=== PATIENT | female | born 1940 | race Caucasian/White ===

== ENCOUNTER 2019-02-11 10:58 | Emergency (ER) | payer OTHER ==
[2019-02-11 11:12] VITALS: BP 140/69; PULSE 78; TEMP 98.3; BMI 28.7
[2019-02-11] MEDS ORDERED: LIDOCAINE 5% TOPICAL PATCH TP ONE (11:28)
[2019-02-11] MEDS ORDERED: CYCLOBENZAPRINE HCL 10 MG TABLET (FP) PO ONE (11:28)
[2019-02-11] MEDS ORDERED: IBUPROFEN 600 MG TABLET (FP) PO ONE ×2 (11:30→11:31)
[2019-02-11] MEDS ORDERED: CYCLOBENZAPRINE HCL 10 MG TABLET (FP) ONE (11:31)
[2019-02-11] MEDS ORDERED: LIDOCAINE 5% TOPICAL PATCH ONE (11:31)
--- NOTE | 2019-02-11 12:22 | PDOC ---
History of Present Illness - General Chief Complaint: Back Pain Stated Complaint: BACK PAIN Time Seen by Provider: 02/11/19 11:12 History Source: Patient, Family Exam Limitations: Language Barrier Past History - Past Medical History Allergies/Adverse Reactions: Allergies Allergy/AdvReac Type Severity Reaction Status Date / Time hydrocodone [Hydrocodone] AdvReac Mild Itching Verified 02/11/19 11:10 oxycodone AdvReac Mild Itching Verified 02/11/19 11:10 Home Medications: Ambulatory Orders Diclofenac Sodium [Voltaren] 2 gm TP TID PRN #3 tube 07/08/18 Enalapril/Hydrochlorothiazide [Vaseretic 10-25 mg Tablet] 1 each PO DAILY Eszopiclone [Lunesta -] 3 mg PO HS 07/08/18 Omeprazole 20 mg PO DAILY 07/08/18 Rosuvastatin [Crestor -] 20 mg PO DAILY 07/08/18 Diclofenac Sodium 100 gm TP TID #1 gel..gram. 10/08/18 Baclofen 10 mg PO BID PRN #60 tablet 01/03/19 Ibuprofen 600 mg PO BID PRN #60 tablet 01/03/19 Pramipexole Dihydrochloride [Mirapex -] 0.25 mg PO HS #30 tablet 01/03/19 Cyclobenzaprine HCl [Flexeril 10 mg] 10 mg PO DAILY PRN #30 tablet 02/11/19 Diclofenac Sodium [Voltaren] 2 gm TP Q6H #1 tube 02/11/19 Lidocaine 5% Patch [Lidoderm -] 1 patch TP DAILY #7 patch 02/11/19 Anemia: No Asthma: Yes Cancer: No Cardiac Disorders: No CVA: No COPD: No CHF: No Dementia: No Diabetes: Yes (diet controlled) GI Disorders: Yes (gerd, gastroparesis) Disorders: No HTN: Yes Hypercholesterolemia: Yes Liver Disease: No Psychiatric Problems: Yes (depression, insomnia) Seizures: No Thyroid Disease: No - Surgical History Abdominal Surgery: Yes (HERNIA REPAIR) Appendectomy: No Cardiac Surgery: No Cholecystectomy: No Lung Surgery: No Neurologic Surgery: No Orthopedic Surgery: No - Immunization History Immunization Up to Date: No - Suicide/Smoking/Psychosocial Hx Smoking Status: No Smoking History: Never smoked Have you smoked in the past 12 months: No Number of Cigarettes Smoked Daily: 0 Information on smoking cessation initiated: No Hx Alcohol Use: No Drug/Substance Use Hx: No Substance Use Type: None Hx Substance Use Treatment: No *Physical Exam - Vital Signs Last Vital Signs Temp Pulse Resp BP Pulse Ox 98.3 F 78 16 140/69 100 02/11/19 11:10 02/11/19 11:10 02/11/19 11:10 02/11/19 11:10 02/11/19 11:10 - Physical Exam General Appearance: No: Apparent Distress Respiratory/Chest: positive: Lungs Clear, Normal Breath Sounds. negative: Respiratory Distress Cardiovascular: positive: Regular Rhythm, Regular Rate, S1, S2. negative: Murmur Gastrointestinal/Abdominal: positive: Normal Bowel Sounds, Soft. negative: Tender, Distended, Guarding, Rebound Musculoskeletal: positive: Vertebral Tenderness (along lumbar spine), Other (+ TTP along L lumbar paraspinal muscles). negative: CVA Tenderness Neurologic: positive: Fully Oriented, Alert, Normal Mood/Affect, Motor Strength 5/5, Other (normal gait) ED Treatment Course - RADIOLOGY Radiology Studies Ordered: Category Date Time Status SPINE-LUMBAR SACRAL [RAD] Stat Radiology 02/11/19 11:30 Taken - Medications Given in the ED: ED Medications Discontinued Medications Generic Name Dose Route Start Last Admin Trade Name Freq PRN Reason Stop Dose Admin Cyclobenzaprine HCl 10 mg 02/11/19 11:28 02/11/19 11:34 Flexeril - PO 02/11/19 11:29 10 mg ONCE ONE Administration Ibuprofen 600 mg 02/11/19 11:30 02/11/19 11:34 Motrin - PO 02/11/19 11:31 600 mg ONCE ONE Administration Lidocaine 1 patch 02/11/19 11:28 02/11/19 11:53 Lidoderm Patch - TP 02/11/19 11:29 1 patch ONCE ONE Administration Medical Decision Making - Medical Decision Making 78 y/o F hx of HTN, HLD, DM, asthma, GERD, herniated disc, chronic lower back pain presents with acute on chronic lower back pain, worse from yesterday. Denies trauma. was just lying down and pain got worse. Pain radiates down left leg. Follows with pain management, Dr. Bharati Sheffield, whom she last saw in December 2018; was only advised to take Motrin for pain, but that has not been helping her. Denies weakness of extremities, tingling, fever, sob, cp, abd pain, vomiting, urinary complaints, bowel incontinence, saddle/groin paresthesia. Has chronic urinary incontinence at times due to "low bladder." Patient had lumbar spine MRI Mar 2018 which showed degenerative changes and levoscoliosis Patient given motrin, flexeril, lido patch [labs from 06/2018 were reviewed with normal kidney function noted] LS xray here shows no fracture; degenerative changes again noted Stable for dc 02/11/19 12:22 *DC/Admit/Observation/Transfer Diagnosis at time of Disposition: Lumbar back pain - Discharge Dispostion Disposition: HOME Condition at time of disposition: Stable Decision to Admit order: No - Prescriptions Prescriptions: Cyclobenzaprine HCl [Flexeril 10 mg] 10 mg PO DAILY PRN #30 tablet PRN Reason: Muscle Spasms Diclofenac Sodium [Voltaren] 2 gm TP Q6H #1 tube Lidocaine 5% Patch [Lidoderm -] 1 patch TP DAILY #7 patch - Referrals Referrals: Keyona Forrester MD [Primary Care Provider] - 2 Days Bharati Sheffield NP [Nurse Practitioner] - 2 Days - Patient Instructions Printed Discharge Instructions: DI for Low Back Pain Additional Instructions: Thank you for choosing [facility]. It was a pleasure taking care of you. Apply the Voltaren gel as directed Take Flexeril (muscle relaxer) as needed at night. This medication can also make you drowsy so please be cautious with driving or performing heavy physical work. Recommend physical therapy as well Follow-up with your pain management doctor in 2-3 days Return to the Emergency Department if your symptoms worsen or persist, you have fever, shortness of breath, chest pain, severe abdominal pain, vomiting, weakness of extremities (arms and/or legs), unable to walk, unable to control bowel movements or other concerning symptoms. Print Language: SWEDISH - Post Discharge Activity
== END 2019-02-11 13:00 | disposition home or self-care (01) ==
LOC: JERFT 10:58
DX: M54.5 Low back pain (principal); I10 Essential (primary) hypertension; E78.00 Pure hypercholesterolemia, unspecified; E11.9 Type 2 diabetes mellitus without complications; F41.9 Anxiety disorder, unspecified; G47.00 Insomnia, unspecified
CPT/HCPCS: 72100-TC-FY; 99281-25

== ENCOUNTER 2019-02-13 13:05 | Emergency (ER) | payer OTHER ==
[2019-02-13 13:28] VITALS: BP 182/70; BMI 27.5
--- NOTE | 2019-02-13 13:55 | PDOC ---
History of Present Illness - General Chief Complaint: Back Pain Stated Complaint: R LEG PAIN Time Seen by Provider: 02/13/19 13:37 History Source: Patient - History of Present Illness Occurred: reports: other Severity: reports: severe Pain Location: reports: back Past History - Past Medical History Allergies/Adverse Reactions: Allergies Allergy/AdvReac Type Severity Reaction Status Date / Time hydrocodone [Hydrocodone] AdvReac Mild Itching Verified 02/13/19 13:25 oxycodone AdvReac Mild Itching Verified 02/13/19 13:25 IVP DYE Allergy Uncoded 02/13/19 13:31 Home Medications: Ambulatory Orders Diclofenac Sodium [Voltaren] 2 gm TP TID PRN #3 tube 07/08/18 Enalapril/Hydrochlorothiazide [Vaseretic 10-25 mg Tablet] 1 each PO DAILY Eszopiclone [Lunesta -] 3 mg PO HS 07/08/18 Omeprazole 20 mg PO DAILY 07/08/18 Rosuvastatin [Crestor -] 20 mg PO DAILY 07/08/18 Diclofenac Sodium 100 gm TP TID #1 gel..gram. 10/08/18 Baclofen 10 mg PO BID PRN #60 tablet 01/03/19 Ibuprofen 600 mg PO BID PRN #60 tablet 01/03/19 Pramipexole Dihydrochloride [Mirapex -] 0.25 mg PO HS #30 tablet 01/03/19 Cyclobenzaprine HCl [Flexeril 10 mg] 10 mg PO DAILY PRN #30 tablet 02/11/19 Diclofenac Sodium [Voltaren] 2 gm TP Q6H #1 tube 02/11/19 Lidocaine 5% Patch [Lidoderm -] 1 patch TP DAILY #7 patch 02/11/19 Acetaminophen [Tylenol -] 1,000 mg PO Q6H #30 tablet 02/13/19 Tramadol HCl 50 mg PO Q6H #12 tablet MDD 200mg 02/13/19 Anemia: No Asthma: Yes Cancer: No Cardiac Disorders: No CVA: No COPD: No CHF: No Dementia: No Diabetes: Yes (diet controlled) GI Disorders: Yes (gerd, gastroparesis) Disorders: No HTN: Yes Hypercholesterolemia: Yes Liver Disease: No Psychiatric Problems: Yes (depression, insomnia) Seizures: No Thyroid Disease: No - Surgical History Abdominal Surgery: Yes (HERNIA REPAIR) Appendectomy: No Cardiac Surgery: No Cholecystectomy: No Lung Surgery: No Neurologic Surgery: No Orthopedic Surgery: No - Immunization History Immunization Up to Date: No - Suicide/Smoking/Psychosocial Hx Smoking Status: No Smoking History: Never smoked Have you smoked in the past 12 months: No Number of Cigarettes Smoked Daily: 0 Hx Alcohol Use: No Drug/Substance Use Hx: No Substance Use Type: None Hx Substance Use Treatment: No Trauma Specific PMHX - Complaint Specific PMHX Arthritis: Yes Review of Systems - Review of Systems Constitutional: No: Chills, Fever ABD/GI: No: Nausea, Vomiting, Abdominal cramping : No: Burning, Dysuria, Hematuria Neurological: No: Numbness, Tingling, Weakness *Physical Exam - Vital Signs Last Vital Signs Temp Pulse Resp BP Pulse Ox 182/70 H 95 02/13/19 13:15 02/13/19 13:15 - Physical Exam General Appearance: Yes: Appropriately Dressed, Mild Distress HEENT: positive: Normal Voice Neck: positive: Supple Respiratory/Chest: negative: Respiratory Distress Gastrointestinal/Abdominal: positive: Normal Bowel Sounds, Soft. negative: Tender, Pulsatile Mass, Distended, Guarding, Rebound Musculoskeletal: positive: Vertebral Tenderness (to L lower back, neg SLR b/l, ambulatory). negative: CVA Tenderness Extremity: positive: Normal Inspection Integumentary: positive: Dry, Warm Neurologic: positive: Fully Oriented, Alert, Normal Mood/Affect, Motor Strength 5/5 Medical Decision Making - Medical Decision Making 02/13/19 13:48 78 y/o F hx of HTN, HLD, DM, asthma, GERD, herniated disc, chronic lower back pain, MRI in 2018 shows degenerative changes w/ levoscoliosis, f/u with pain management and only advised to take motrin per pt, here for 2nd visit for her usual back pain. Seen in ED 2 days ago for same w/ unremarkable XR. Sent home w/ flexeril, voltaran and lidoderm but states her insurance do not cover these meds so returns for pain control. No neuro sxs, dysuria, n/v/f/c or abd pain. Has f/u with management in several weeks per pt see exam Acute on chronic pain known DJD w/ levoscoliosis on MRI 2018 Unremarkable XR 2 days ago in ED No infectious sxs No abd pain No red flags at this time Dc w/ pain control To f/u with pain management 02/13/19 15:04 Elevated BP, did not take meds today. Asx from BP standpoint. Will dc to take home meds. Reasons to return to ED d/w pt and family *DC/Admit/Observation/Transfer Diagnosis at time of Disposition: Chronic back pain Qualifiers: Back pain location: low back pain Back pain laterality: left Sciatica presence : without sciatica Qualified Code(s): M54.5 - Low back pain; G89.29 - Other chronic pain - Discharge Dispostion Disposition: HOME Condition at time of disposition: Good - Prescriptions Prescriptions: Acetaminophen [Tylenol -] 1,000 mg PO Q6H #30 tablet Tramadol HCl 50 mg PO Q6H #12 tablet MDD 200mg - Referrals Referrals: Keyona Forrester MD [Primary Care Provider] - - Patient Instructions Additional Instructions: Take medications as directed and follow up with your pain doctor - Post Discharge Activity
[2019-02-13] MEDS ORDERED: ACETAMINOPHEN 325 MG TABLET (FP) PO ONE (13:56)
[2019-02-13] MEDS ORDERED: traMADol HCL 50 MG TABLET PO ONE (13:56)
[2019-02-13] MEDS ORDERED: traMADol HCL 50 MG TABLET ONE (14:55)
[2019-02-13] MEDS ORDERED: ACETAMINOPHEN 325 MG TABLET (FP) ONE (14:55)
== END 2019-02-13 15:05 | disposition home or self-care (01) ==
LOC: JER 13:05
DX: M54.5 Low back pain (principal); G89.29 Other chronic pain; I10 Essential (primary) hypertension; E78.00 Pure hypercholesterolemia, unspecified; E11.9 Type 2 diabetes mellitus without complications; K21.9 Gastro-esophageal reflux disease without esophagitis; G47.00 Insomnia, unspecified; F32.9 Major depressive disorder, single episode, unspecified
CPT/HCPCS: 99281-25

== ENCOUNTER 2020-10-29 05:56 | Day surgery (SDC) | payer MEDICARE, OTHER ==
[2020-10-23 11:04] VITALS: BMI 27.7
[2020-10-29] MEDS ORDERED: SUCCINYLCHOLINE CHLORIDE 200 MG/10 ML SYRINGE ONE (07:33)
[2020-10-29] MEDS ORDERED: PROPOFOL 20 ML ONE ×2 (07:33)
[2020-10-29] MEDS ORDERED: ceFAZolin SODIUM 1 GM VIAL ONE (07:34)
[2020-10-29] MEDS ORDERED: DEXAMETHASONE SOD PHOSPHATE 4 MG/1 ML VIAL ONE (07:34)
[2020-10-29] MEDS ORDERED: ONDANSETRON 4 MG/2 ML VIAL ONE (07:34)
[2020-10-29] MEDS ORDERED: DEXAMETHASONE SOD PHOSPHATE 10 MG/1 ML VIAL ONE (07:52)
[2020-10-29] MEDS ORDERED: MIDAZOLAM HCL 2 MG/2 ML SINGLE DOSE VIAL ONE (07:52)
[2020-10-29] MEDS ORDERED: BUPIVACAINE HCL/PF 0.5% (5 MG/ML) 30 ML VIAL IJ ONE (07:53)
[2020-10-29] MEDS ORDERED: TRANEXAMIC ACID 1000 MG/10 ML VIAL ONE ×2 (08:23→10:29)
[2020-10-29] MEDS ORDERED: VANCOMYCIN 1,000 MG VIAL (RESTRICTED TO ID ONLY) ONE ×2 (08:48→09:08)
[2020-10-29] MEDS ORDERED: VANCOMYCIN 1,000 MG VIAL (RESTRICTED TO ID ONLY) IVPB ONE (10:18)
[2020-10-29] MEDS ORDERED: BUPIVICAINE 0.25%/MORPH PF/KETOROLAC - 51ML DISP.SYRINGE IA ONE ×2 (10:29→10:40)
[2020-10-29] MEDS ORDERED: MAG HYDROX/AL HYDROX/SIMETH 30 ML UNIT-DOSE CUP PO PRN (11:27)
[2020-10-29] MEDS ORDERED: ONDANSETRON 4 MG/2 ML VIAL IVPUSH PRN (11:27)
[2020-10-29] MEDS ORDERED: LACTATED RINGERS SOLUTION 1,000 ML IV SCH (11:30)
[2020-10-29] MEDS ORDERED: traMADol HCL 50 MG TABLET PO PRN (11:49)
[2020-10-29 11:55] LABS: HEMATOCRIT 35.8 % (32.4-45.2); HEMOGLOBIN 11.8 GM/dl (10.7-15.3); MCH 29.6 pg (25.7-33.7); MEAN CELL VOLUME 89.9 fl (80-96); PLATELET COUNT 350 K/MM3 (134-434); RBC 3.99 M/mm3 (3.60-5.2); RDW 14.2 % (11.6-15.6); WHITE BLOOD COUNT 15.4 K/mm3 (4.0-10.8)
[2020-10-29 12:01] LABS: CALCIUM 8.7 mg/dl (8.5-10); CREATININE 0.9 mg/dl (0.55-1.3)
[2020-10-29] MEDS: ACETAMINOPHEN 325 MG TABLET (FP) PO SCH ×2 (12:15→17:35)
[2020-10-29] MEDS ORDERED: ACETAMINOPHEN 325 MG TABLET (FP) ONE (12:18)
[2020-10-29] MEDS ORDERED: oxyCODONE HCL 5 MG TABLET ONE (12:23)
[2020-10-29] MEDS: oxyCODONE HCL 5 MG TABLET PO PRN ×2 (12:25→16:03)
[2020-10-29] MEDS: CEFAZOLIN 2 GM/D5W 2 GM/50 ML ML IVPB SCH (17:36)
[2020-10-29] MEDS ORDERED: INSULIN SLIDING SCALE (NOVOLOG) 1 VIAL SQ ONE (18:36)
[2020-10-29] MEDS: INSULIN (NOVOLOG) ASPART 100 UNITS/ML 10ML VIAL SQ SCH ×2 (18:58→22:43)
[2020-10-29] MEDS: PRAMIPEXOLE DIHYDROCHLORIDE 1 MG TABLET PO SCH (21:04)
[2020-10-29] MEDS: GABAPENTIN 300 MG CAPSULE PO SCH (21:04)
[2020-10-29] MEDS: SENNOSIDES/DOCUSATE COMBO (SENNA PLUS) TABLET (UD) PO SCH (21:04)
[2020-10-29] MEDS ORDERED: PRAMIPEXOLE DIHYDROCHLORIDE 0.5 MG TABLET PO SCH (22:00)
[2020-10-30] MEDS: ACETAMINOPHEN 325 MG TABLET (FP) PO SCH ×5 (00:01→23:00)
[2020-10-30] MEDS: CEFAZOLIN 2 GM/D5W 2 GM/50 ML ML IVPB SCH ×2 (00:01→09:19)
[2020-10-30] MEDS: oxyCODONE HCL 5 MG TABLET PO PRN ×5 (06:00→23:00)
[2020-10-30] MEDS: INSULIN (NOVOLOG) ASPART 100 UNITS/ML 10ML VIAL SQ SCH ×3 (06:43→21:27)
[2020-10-30 07:33] LABS: HEMATOCRIT 29.2 % (32.4-45.2); HEMOGLOBIN 9.9 GM/dl (10.7-15.3); MCH 30.3 pg (25.7-33.7); MCHC 34.1 g/dl (32.0-36.0); PLATELET COUNT 319 K/MM3 (134-434); RBC 3.28 M/mm3 (3.60-5.2); RDW 13.6 % (11.6-15.6)
[2020-10-30 07:43] LABS: CALCIUM 8.6 mg/dl (8.5-10); CREATININE 0.9 mg/dl (0.55-1.3)
[2020-10-30] MEDS ORDERED: INSULIN SLIDING SCALE (NOVOLOG) 1 VIAL SQ ONE ×3 (09:16→21:26)
[2020-10-30] MEDS: SOLIFENACIN SUCCINATE 5 MG TAB PO SCH (09:21)
[2020-10-30] MEDS: ASPIRIN 325 MG TABLET PO SCH ×2 (09:21→21:27)
[2020-10-30] MEDS: GABAPENTIN 300 MG CAPSULE PO SCH ×2 (09:21→21:28)
[2020-10-30] MEDS: SENNOSIDES/DOCUSATE COMBO (SENNA PLUS) TABLET (UD) PO SCH ×2 (09:22→21:28)
[2020-10-30] MEDS: ROSUVASTATIN CA 20 MG TABLET (FP) PO SCH (09:22)
[2020-10-30] MEDS: HYDROCHLOROTHIAZIDE 25 MG TABLET (FP) PO SCH (09:22)
[2020-10-30] MEDS: MULTIVITAMINS (DAILY MVI) TABLET (FP) PO SCH (09:23)
[2020-10-30] MEDS: ENALAPRIL MALEATE 10 MG TABLET PO SCH (09:23)
[2020-10-30] MEDS: PANTOPRAZOLE 40 MG TABLET PO SCH (09:23)
[2020-10-30] MEDS ORDERED: PATIENT'S OWN MEDICATION (NON-FORMULARY) (Enalapril/Hydrochlorothiazide [Vaseretic 10-25 M PO SCH (10:00)
[2020-10-30] MEDS: PRAMIPEXOLE DIHYDROCHLORIDE 1 MG TABLET PO SCH (21:28)
[2020-10-31] MEDS: oxyCODONE HCL 5 MG TABLET PO PRN (06:48)
[2020-10-31] MEDS: ACETAMINOPHEN 325 MG TABLET (FP) PO SCH (06:50)
[2020-10-31] MEDS: INSULIN (NOVOLOG) ASPART 100 UNITS/ML 10ML VIAL SQ SCH ×2 (06:54→11:31)
[2020-10-31 07:55] LABS: HEMATOCRIT 29.2 % (32.4-45.2); HEMOGLOBIN 9.7 GM/dl (10.7-15.3); MCHC 33.2 g/dl (32.0-36.0); MEAN CELL VOLUME 90.6 fl (80-96); PLATELET COUNT 312 K/MM3 (134-434); RBC 3.23 M/mm3 (3.60-5.2); RDW 14.2 % (11.6-15.6); WHITE BLOOD COUNT 11.8 K/mm3 (4.0-10.8)
[2020-10-31 08:50] VITALS: PULSE 71; TEMP 98.1
[2020-10-31] MEDS: SENNOSIDES/DOCUSATE COMBO (SENNA PLUS) TABLET (UD) PO SCH (09:29)
[2020-10-31] MEDS: ASPIRIN 325 MG TABLET PO SCH (09:29)
[2020-10-31] MEDS: SOLIFENACIN SUCCINATE 5 MG TAB PO SCH (09:29)
[2020-10-31] MEDS: GABAPENTIN 300 MG CAPSULE PO SCH (09:29)
[2020-10-31] MEDS: PANTOPRAZOLE 40 MG TABLET PO SCH (09:30)
[2020-10-31] MEDS: ROSUVASTATIN CA 20 MG TABLET (FP) PO SCH (09:30)
[2020-10-31] MEDS: MULTIVITAMINS (DAILY MVI) TABLET (FP) PO SCH (09:30)
[2020-10-31 11:20] VITALS: BP 109/41
[2020-10-31] MEDS: HYDROCHLOROTHIAZIDE 25 MG TABLET (FP) PO SCH (11:20)
[2020-10-31] MEDS: ENALAPRIL MALEATE 10 MG TABLET PO SCH (11:21)
== END 2020-10-31 13:22 | disposition home or self-care (01) ==
LOC: SUATTDRO 05:56 → FASUSAT 05:56 → EDSTATUS 08:00 → FM/S 12:48 → FASUSAT 10-31 13:22
PROVIDERS: ATTEND Nurse Practitioner Acute Care
PROC: 0SR90J9 Replacement of Right Hip Joint with Synthetic Substitute, Cemented, Open Approach (ICD-10-PCS; principal; 2020-10-29 08:51)
DX: M16.11 Unilateral primary osteoarthritis, right hip (principal)
CPT/HCPCS: 27130; C1776; 36415; 73502-TC-RT-FY; 80048; 82962; 85027; 88305-TC; 88311-TC; 94760; 97010-GP; 97116-GP; 97163-GP; J1100

== ENCOUNTER 2022-07-22 14:00 | Emergency (ER) | payer MEDICARE ==
[2022-07-22 14:11] VITALS: TEMP 98.1; BMI 27.9
[2022-07-22] MEDS ORDERED: SODIUM CHLORIDE 1,000 ML IV STA (15:19)
[2022-07-22] MEDS ORDERED: ONDANSETRON 4 MG/2 ML VIAL IVPUSH ONE (15:19)
[2022-07-22] MEDS ORDERED: ONDANSETRON 4 MG/2 ML VIAL ONE (16:18)
[2022-07-22 16:38] VITALS: BP 104/59; PULSE 71; RESP 18
[2022-07-22 16:56] LABS: BASO % 0.1 % (0-2.0); HEMATOCRIT 34.8 % (32.4-45.2); HEMOGLOBIN 11.5 GM/dL (10.7-15.3); LYMPH % 5.8 % (8-40); MCH 29.1 pg (25.7-33.7); MCHC 33.1 g/dl (32.0-36.0); MEAN CELL VOLUME 87.7 fl (80-96); MEAN PLT VOLUME 8.1 fl (7.5-11.1); MONO % 4.8 % (3.8-10.2); NEUT % 89.3 % (42.8-82.8); PLATELET COUNT 324 10^3/uL (134-434); RBC 3.97 M/mm3 (3.60-5.2); RDW 15.8 % (11.6-15.6); WHITE BLOOD COUNT 20.3 K/mm3 (4.0-10.0)
[2022-07-22 17:18] LABS: CALCIUM 9.2 mg/dL (8.5-10.1)
[2022-07-22 17:19] LABS: ALBUMIN 3.3 g/dl (3.4-5.0); BLOOD UREA NITROGEN 20.6 mg/dL (7-18); MAGNESIUM 1.8 mg/dL (1.8-2.4)
[2022-07-22 17:22] LABS: CREATININE 0.9 mg/dL (0.55-1.3)
[2022-07-22 17:23] LABS: BILIRUBIN,TOTAL 0.6 mg/dL (0.2-1); TOT PROT 6.6 g/dl (6.4-8.2)
[2022-07-22 17:46] LABS: ANISOCYTOSIS 1+; MACROCYTOSIS 1+
[2022-07-22 18:17] LABS: EPI CELLS 6 /uL (0-25.1); HYALINE CASTS 0 /uL (0-3.1); PH,URINE 8.5 (5.0-8.0); URINE APPEARANCE CLEAR; URINE BACTERIA 33 /uL (0-1359); URINE BILIRUBIN NEGATIVE (NEGATIVE); URINE COLOR YELLOW; URINE GLUCOSE (UA) NEGATIVE (NEGATIVE); URINE KETONE NEGATIVE (NEGATIVE); URINE LEUK ESTERASE NEGATIVE (NEGATIVE); URINE NITRITE NEGATIVE (NEGATIVE); URINE PROTEIN 1+ (NEGATIVE); URINE RBC 20 /uL (0-23.9); URINE UROBILINOGEN 0.2 mg/dL (0.2-1.0); URINE WBC 8 /uL (0-25.8)
[2022-07-22] MEDS ORDERED: MAG HYDROX/AL HYDROX/SIMETH -MYLANTA- ORAL SUSPENSION PO ONE (18:26)
[2022-07-22] MEDS ORDERED: FAMOTIDINE 20 MG/50 ML IVPB 20 MG/50 ML MG IVPB ONE ×2 (18:26→18:38)
[2022-07-22] MEDS ORDERED: ACETAMINOPHEN 1000 MG/100 ML BAG IVPB ONE (18:38)
[2022-07-22] MEDS ORDERED: MAG HYDROX/AL HYDROX/SIMETH 30 ML UNIT-DOSE CUP ONE (18:38)
[2022-07-22] MEDS ORDERED: ACETAMINOPHEN INJECTION 100 ML IVPB ONE (18:46)
[2022-07-22 21:21] LABS: BASO % 0.4 % (0-2.0); EOS % 0.3 % (0-4.5); HEMATOCRIT 32.5 % (32.4-45.2); HEMOGLOBIN 10.6 GM/dL (10.7-15.3); LYMPH % 8.9 % (8-40); MCH 28.7 pg (25.7-33.7); MCHC 32.6 g/dl (32.0-36.0); MEAN PLT VOLUME 7.9 fl (7.5-11.1); MONO % 4.5 % (3.8-10.2); NEUT % 85.9 % (42.8-82.8); PLATELET COUNT 264 10^3/uL (134-434); RBC 3.69 M/mm3 (3.60-5.2); RDW 15.6 % (11.6-15.6); WHITE BLOOD COUNT 18.9 K/mm3 (4.0-10.0)
== END 2022-07-22 21:54 | disposition home or self-care (01) ==
LOC: JER 14:00
PROC: 3E0333Z Introduction of Anti-inflammatory into Peripheral Vein, Percutaneous Approach (ICD-10-PCS; principal; 2022-07-22)
PROC: 3E033GC Introduction of Other Therapeutic Substance into Peripheral Vein, Percutaneous Approach (ICD-10-PCS; 2022-07-22)
PROC: 3E033GC Introduction of Other Therapeutic Substance into Peripheral Vein, Percutaneous Approach (ICD-10-PCS; 2022-07-22)
PROC: 3E0337Z Introduction of Electrolytic and Water Balance Substance into Peripheral Vein, Percutaneous Approach (ICD-10-PCS; 2022-07-22)
DX: K52.9 Noninfective gastroenteritis and colitis, unspecified (principal)
CPT/HCPCS: 0241U-QW; 36415; 71046-TC-FY; 74177-TC; 80053; 81003; 83605; 83735; 84100; 85025; 87086; 93005; 93010; 96360; 96374; 96375; 99285-25; Q9967

== ENCOUNTER 2022-08-14 17:41 | Observation (INO) | payer MEDICARE ==
[2022-08-14 17:59] VITALS: BMI 27.9
[2022-08-14 19:46] LABS: URINE APPEARANCE CLEAR; URINE BILIRUBIN NEGATIVE (NEGATIVE); URINE COLOR YELLOW; URINE GLUCOSE (UA) NEGATIVE (NEGATIVE); URINE KETONE NEGATIVE (NEGATIVE); URINE LEUK ESTERASE NEGATIVE (NEGATIVE); URINE NITRITE NEGATIVE (NEGATIVE); URINE PROTEIN NEGATIVE (NEGATIVE); URINE UROBILINOGEN 0.2 mg/dL (0.2-1.0)
[2022-08-14] MEDS ORDERED: ACETAMINOPHEN 1000 MG/100 ML BAG IVPB ONE (20:33)
[2022-08-14] MEDS ORDERED: ACETAMINOPHEN INJECTION 100 ML IVPB ONE (20:34)
[2022-08-14 21:04] LABS: VENOUS BASE EXCESS 3.3 mmol/L (-2-2); VENOUS O2 SATURATION 30.3 % (70-80); VENOUS PCO2 41.9 mmHg (38-52); VENOUS PH 7.439 (7.310-7.410)
[2022-08-14 21:09] LABS: BASO % 0.4 % (0-2.0); EOS % 7.2 % (0-4.5); HEMATOCRIT 39.8 % (32.4-45.2); HEMOGLOBIN 12.7 GM/dL (10.7-15.3); LYMPH % 28.7 % (8-40); MCH 27.4 pg (25.7-33.7); MCHC 31.8 g/dl (32.0-36.0); MEAN CELL VOLUME 86.1 fl (80-96); MEAN PLT VOLUME 7.7 fl (7.5-11.1); MONO % 8.8 % (3.8-10.2); NEUT % 54.9 % (42.8-82.8); PLATELET COUNT 490 10^3/uL (134-434); RBC 4.62 M/mm3 (3.60-5.2); RDW 15.7 % (11.6-15.6); WHITE BLOOD COUNT 7.6 K/mm3 (4.0-10.0)
[2022-08-14 21:46] LABS: N-TERMINAL BNP 301.3 pg/ml (5-450)
[2022-08-14 21:51] LABS: ALBUMIN 3.8 g/dl (3.4-5.0); BLOOD UREA NITROGEN 12.5 mg/dL (7-18)
[2022-08-14 21:54] LABS: CREATININE 0.8 mg/dL (0.55-1.3)
[2022-08-14 21:55] LABS: BILIRUBIN,TOTAL 0.4 mg/dL (0.2-1); TOT PROT 7.5 g/dl (6.4-8.2)
[2022-08-15] MEDS ORDERED: FUROSEMIDE 40 MG TABLET (FP) PO ONE (00:36)
[2022-08-15] MEDS: rOPINIRole HCL 0.5 MG TABLET PO SCH ×3 (01:41→23:03)
[2022-08-15] MEDS ORDERED: FUROSEMIDE 40 MG TABLET (FP) ONE (01:42)
[2022-08-15] MEDS: INSULIN SLIDING SCALE (NOVOLOG) 1 VIAL SQ SCH ×4 (06:53→23:03)
[2022-08-15 09:15] LABS: ALBUMIN 3.9 g/dl (3.4-5.0); CALCIUM 10.2 mg/dL (8.5-10.1); MAGNESIUM 1.9 mg/dL (1.8-2.4)
[2022-08-15 09:18] LABS: CREATININE 0.9 mg/dL (0.55-1.3); PHOSPHOROUS 3.5 mg/dL (2.5-4.9)
[2022-08-15 09:19] LABS: BILIRUBIN,TOTAL 0.6 mg/dL (0.2-1); TOT PROT 7.7 g/dl (6.4-8.2)
[2022-08-15 09:28] LABS: BASO % 0.6 % (0-2.0); EOS % 7.3 % (0-4.5); LYMPH % 27.9 % (8-40); MCH 27.6 pg (25.7-33.7); MCHC 32.5 g/dl (32.0-36.0); MEAN CELL VOLUME 85.1 fl (80-96); MEAN PLT VOLUME 7.9 fl (7.5-11.1); MONO % 8.9 % (3.8-10.2); NEUT % 55.3 % (42.8-82.8); PLATELET COUNT 495 10^3/uL (134-434); RDW 15.3 % (11.6-15.6); WHITE BLOOD COUNT 7.1 K/mm3 (4.0-10.0)
[2022-08-15] MEDS: ENOXAPARIN NA (PORCINE) 40 MG/0.4 ML DISP.SYRIN SQ SCH (09:48)
[2022-08-15] MEDS: LOSARTAN POTASSIUM 25 MG TABLET PO SCH (09:48)
[2022-08-15] MEDS: ACETAMINOPHEN 325 MG TABLET (FP) PO PRN ×2 (12:44→22:17)
[2022-08-15] MEDS ORDERED: diphenhydrAMINE HCL 25 MG CAPSULE (FP) PO ONE (13:42)
[2022-08-15 20:32] VITALS: RESP 20
[2022-08-15] MEDS ORDERED: ROSUVASTATIN CA 20 MG TABLET PO SCH (22:00)
[2022-08-15] MEDS: predniSONE 20 MG TABLET (UD) PO SCH (22:06)
[2022-08-16] MEDS: predniSONE 20 MG TABLET (UD) PO SCH ×2 (05:07→09:25)
[2022-08-16] MEDS: INSULIN SLIDING SCALE (NOVOLOG) 1 VIAL SQ SCH ×2 (06:58→12:34)
[2022-08-16] MEDS: LOSARTAN POTASSIUM 25 MG TABLET PO SCH (09:25)
[2022-08-16] MEDS: ENOXAPARIN NA (PORCINE) 40 MG/0.4 ML DISP.SYRIN SQ SCH (09:25)
[2022-08-16] MEDS ORDERED: diphenhydrAMINE HCL 25 MG CAPSULE (FP) PO ONE (10:00)
[2022-08-16] MEDS ORDERED: busPIRone HCL 5 MG TABLET PO SCH (10:00)
[2022-08-16] MEDS ORDERED: GABAPENTIN 300 MG CAPSULE PO SCH (10:00)
[2022-08-16] MEDS ORDERED: AMITRIPTYLINE HCL 10 MG TABLET PO SCH (10:00)
[2022-08-16 12:13] VITALS: BP 158/77; PULSE 90; TEMP 98.3
[2022-08-16] MEDS ORDERED: INSULIN (NOVOLOG) ASPART 100 UNITS/ML 10ML VIAL ONE (12:22)
== END 2022-08-16 15:59 | disposition home or self-care (01) ==
LOC: JER 17:41 → UNDOADMOB 22:27 → JERBED 22:27 → OBSVTOIN 08-15 00:36 → INTOOBSV 08-15 00:36 → JERBED 08-15 03:38 → J8W 08-15 03:38 → JERBED 08-15 13:26 → J8W 08-15 13:26
PROVIDERS: ADMIT Internal Medicine; ATTEND Internal Medicine
PROC: 3E033NZ Introduction of Analgesics, Hypnotics, Sedatives into Peripheral Vein, Percutaneous Approach (ICD-10-PCS; principal; 2022-08-15)
PROC: 3E023GC Introduction of Other Therapeutic Substance into Muscle, Percutaneous Approach (ICD-10-PCS; 2022-08-15)
PROC: 3E013VG Introduction of Insulin into Subcutaneous Tissue, Percutaneous Approach (ICD-10-PCS; 2022-08-15)
DX: J45.909 Unspecified asthma, uncomplicated (principal); I10 Essential (primary) hypertension; R06.02 Shortness of breath; E78.5 Hyperlipidemia, unspecified; K21.9 Gastro-esophageal reflux disease without esophagitis; R32 Unspecified urinary incontinence; G89.29 Other chronic pain; Z91.013 Allergy to seafood; Z88.8 Allergy status to other drugs, medicaments and biological substances
CPT/HCPCS: 0241U-QW; 36415; 71046-TC-FY; 71250-TC; 71275-TC; 80053; 80061; 81003; 82803; 82962; 83735; 83880; 84100; 84443; 84484; 85025; 85379; 87086; 93005; 93010; 93306-TC; 93970-TC; 96372; 96374; 97116-GP; 97161-GP; 99285-25; G0378

== ENCOUNTER 2022-11-27 13:13 | Emergency (ER) | payer MEDICARE, OTHER ==
[2022-11-27 13:44] VITALS: BP 103/59; PULSE 55; RESP 16; TEMP 97.8; BMI 25.5
[2022-11-27] MEDS ORDERED: CEPHALEXIN MONOHYDRATE 500 MG CAPSULE (UD) PO ONE (17:38)
[2022-11-27] MEDS ORDERED: CEPHALEXIN MONOHYDRATE 500 MG CAPSULE (UD) ONE (18:28)
== END 2022-11-27 19:19 | disposition home or self-care (01) ==
LOC: JER 13:13
DX: S02.31XA Fracture of orbital floor, right side, initial encounter for closed fracture (principal); H57.89 Other specified disorders of eye and adnexa; H57.11 Ocular pain, right eye; R51.9 Headache, unspecified; W01.198A Fall on same level from slipping, tripping and stumbling with subsequent striking against other object, initial encounter; Y93.01 Activity, walking, marching and hiking; Y92.89 Other specified places as the place of occurrence of the external cause
CPT/HCPCS: 70450-TC; 70486-TC; 72125-TC; 93005; 93010; 99284-25

== ENCOUNTER 2023-01-20 05:34 | Day surgery (SDC) | payer MEDICARE, OTHER ==
[2023-01-19 10:38] VITALS: BMI 25.2
[2023-01-20 13:06] VITALS: TEMP 98
[2023-01-20 13:57] VITALS: BP 143/89; PULSE 68; RESP 20
== END 2023-01-20 13:50 | disposition home or self-care (01) ==
LOC: JASU-ENDO 05:34
PROVIDERS: ATTEND Student in an Organized Health Care Education/Training Program
PROC: 0DBN8ZX Excision of Sigmoid Colon, Via Natural or Artificial Opening Endoscopic, Diagnostic (ICD-10-PCS; principal; 2023-01-20 12:00)
DX: D64.9 Anemia, unspecified (principal); K52.9 Noninfective gastroenteritis and colitis, unspecified

== ENCOUNTER 2023-06-07 11:47 | Emergency (ER) | payer MEDICARE, OTHER ==
[2023-06-07 12:08] VITALS: RESP 18; TEMP 97.9; BMI 25.4
[2023-06-07 13:21] LABS: BASO % 0.6 % (0-2.0); EOS % 5.3 % (0-4.5); HEMATOCRIT 36.7 % (32.4-45.2); HEMOGLOBIN 12.4 GM/dL (10.7-15.3); LYMPH % 23.7 % (8-40); MCH 30.4 pg (25.7-33.7); MCHC 33.7 g/dl (32.0-36.0); MEAN CELL VOLUME 90.4 fl (80-96); MONO % 10.7 % (3.8-10.2); NEUT % 59.7 % (42.8-82.8); PLATELET COUNT 359 10^3/uL (134-434); RBC 4.06 M/mm3 (3.60-5.2); RDW 14.3 % (11.6-15.6); WHITE BLOOD COUNT 8.1 K/mm3 (4.0-10.0)
[2023-06-07 13:28] LABS: INR 1.13 (0.83-1.09); PROTHROMBIN TIME (PATIENT) 13.1 SEC (9.7-13.0)
[2023-06-07 13:31] LABS: ACTIVATED PTT 28.2 SECONDS (25.2-36.5)
[2023-06-07 13:36] LABS: URINE APPEARANCE Error; URINE BILIRUBIN NEGATIVE (NEGATIVE); URINE COLOR YELLOW; URINE GLUCOSE (UA) NEGATIVE (NEGATIVE); URINE KETONE NEGATIVE (NEGATIVE); URINE LEUK ESTERASE NEGATIVE (NEGATIVE); URINE NITRITE NEGATIVE (NEGATIVE); URINE PROTEIN NEGATIVE (NEGATIVE); URINE UROBILINOGEN 0.2 mg/dL (0.2-1.0)
[2023-06-07] MEDS ORDERED: ACETAMINOPHEN INJECTION 100 ML IVPB ONE (13:37)
[2023-06-07 13:38] LABS: POTASSIUM 4.2 mmol/L (3.5-5.1)
[2023-06-07 13:40] LABS: CALCIUM 10.1 mg/dL (8.5-10.1)
[2023-06-07 13:41] LABS: ALBUMIN 3.8 g/dl (3.4-5.0); BLOOD UREA NITROGEN 11.9 mg/dL (7-18)
[2023-06-07] MEDS: ACETAMINOPHEN 1000 MG/100 ML BAG IVPB ONE (13:41)
[2023-06-07 13:43] LABS: CREATININE 1.2 mg/dL (0.55-1.3)
[2023-06-07 13:45] LABS: BILIRUBIN,TOTAL 0.8 mg/dL (0.2-1); TOT PROT 7.4 g/dl (6.4-8.2)
[2023-06-07] MEDS ORDERED: KETOROLAC TROMETHAMINE 15 MG/ML VIAL ONE (16:54)
[2023-06-07] MEDS ORDERED: MAGNESIUM CITRATE 300 ML BOTTLE ONE (16:54)
[2023-06-07] MEDS: MAGNESIUM CITRATE 300 ML BOTTLE PO ONE (16:55)
[2023-06-07] MEDS: KETOROLAC TROMETHAMINE 15 MG/ML VIAL IVPUSH ONE (16:55)
[2023-06-07] MEDS ORDERED: PHENAZOPYRIDINE HCL 100 MG TABLET (FP) PO ONE (17:29)
[2023-06-07 17:35] VITALS: BP 146/82; PULSE 61
== END 2023-06-07 17:57 | disposition home or self-care (01) ==
LOC: JER 11:47
PROC: 3E033NZ Introduction of Analgesics, Hypnotics, Sedatives into Peripheral Vein, Percutaneous Approach (ICD-10-PCS; principal; 2023-06-07)
PROC: 3E0333Z Introduction of Anti-inflammatory into Peripheral Vein, Percutaneous Approach (ICD-10-PCS; 2023-06-07)
DX: R10.30 Lower abdominal pain, unspecified (principal); N39.0 Urinary tract infection, site not specified; R50.9 Fever, unspecified; K59.00 Constipation, unspecified; M54.9 Dorsalgia, unspecified; R30.0 Dysuria; Z20.822 Contact with and (suspected) exposure to COVID-19
CPT/HCPCS: 0241U-QW; 36415; 74177-TC; 80053; 81003; 83605; 83690; 84484; 85025; 85610; 85730; 86850; 86900; 86901; 87040; 87086; 96374; 96375; 99284-25; J0131; Q9967

== ENCOUNTER 2023-11-22 09:05 | Emergency (ER) | payer MEDICARE, OTHER ==
[2023-11-22 09:13] VITALS: RESP 18; BMI 25.5
[2023-11-22] MEDS ORDERED: LIDOCAINE 4% PATCH TP ONE (10:02)
[2023-11-22] MEDS ORDERED: KETOROLAC TROMETHAMINE 30 MG/1 ML VIAL ONE (10:02)
[2023-11-22] MEDS ORDERED: ACETAMINOPHEN 325 MG TABLET (FP) ONE (10:02)
[2023-11-22] MEDS: ACETAMINOPHEN 500 MG TABLET (FP) PO ONE (10:10)
[2023-11-22] MEDS: LIDOCAINE 4% PATCH TP ONE (10:10)
[2023-11-22] MEDS: KETOROLAC TROMETHAMINE 30 MG/1 ML VIAL IM ONE (10:10)
[2023-11-22] MEDS ORDERED: METHOCARBAMOL 500 MG TABLET ONE (12:03)
[2023-11-22] MEDS: METHOCARBAMOL 500 MG TABLET PO ONE (12:04)
[2023-11-22] MEDS ORDERED: oxyCODONE HCL 5 MG TABLET ONE (12:39)
[2023-11-22] MEDS: oxyCODONE HCL 5 MG TABLET PO ONE (12:42)
[2023-11-22 13:10] VITALS: BP 172/72; PULSE 60; TEMP 98.2
[2023-11-22] MEDS ORDERED: LIDOCAINE PATCH REMOVAL MC SCH (22:00)
== END 2023-11-22 13:36 | disposition home or self-care (01) ==
LOC: JER 09:05
PROC: 3E0133Z Introduction of Anti-inflammatory into Subcutaneous Tissue, Percutaneous Approach (ICD-10-PCS; principal; 2023-11-22)
DX: M16.12 Unilateral primary osteoarthritis, left hip (principal); M54.50 Low back pain, unspecified; M25.552 Pain in left hip; G89.29 Other chronic pain
CPT/HCPCS: 72131-TC; 72192-TC; 96372; 99284-25

== ENCOUNTER 2024-10-07 05:59 | Day surgery (SDC) | payer MEDICARE, OTHER ==
[2024-10-05 13:29] VITALS: BMI 27.9
[2024-10-07] MEDS ORDERED: LIDOCAINE HCL/PF 1% SDV 5ML VIAL ONE (07:16)
[2024-10-07 07:18] VITALS: TEMP 97.7
[2024-10-07] MEDS ORDERED: SODIUM CHLORIDE 0.9% P/F 10 ML VIAL IJ ONE (07:34)
[2024-10-07] MEDS: LIDOCAINE HCL 1% PRESERVATIVE FREE - 30ML VIAL IJ ONE ×3 (09:04)
[2024-10-07 09:22] VITALS: BP 170/52; PULSE 50; RESP 18
[2024-10-07] MEDS ORDERED: ACETAMINOPHEN 500 MG TABLET (FP) PO PRN (09:26)
== END 2024-10-07 10:36 | disposition home or self-care (01) ==
LOC: JASU-SURG 05:59
PROVIDERS: ATTEND Pain Medicine Pain Medicine
PROC: 01HY3MZ Insertion of Neurostimulator Lead into Peripheral Nerve, Percutaneous Approach (ICD-10-PCS; principal; 2024-10-07 08:30)
DX: G89.4 Chronic pain syndrome (principal); M25.512 Pain in left shoulder
CPT/HCPCS: 64555; C1778